=== PATIENT | female | born 1975 | race African-American/Black ===

== ENCOUNTER 2023-04-02 09:52 | Inpatient (IN) | payer BC ==
[2023-04-02] MEDS ORDERED: SODIUM CHLORIDE 1,000 ML IV SCH (10:00)
[2023-04-02] MEDS ORDERED: ACETAMINOPHEN 1000 MG/100 ML BAG IVPB ONE (10:21)
[2023-04-02] MEDS ORDERED: ONDANSETRON 4 MG/2 ML VIAL IVPUSH ONE (10:21)
[2023-04-02 11:07] LABS: BASO % 0.5 % (0-2.0); EOS % 0.6 % (0-4.5); HEMATOCRIT 38.3 % (32.4-45.2); HEMOGLOBIN 12.9 GM/dL (10.7-15.3); LYMPH % 34.1 % (8-40); MCH 29.5 pg (25.7-33.7); MCHC 33.6 g/dl (32.0-36.0); MEAN CELL VOLUME 87.9 fl (80-96); MEAN PLT VOLUME 9.2 fl (7.5-11.1); MONO % 2.7 % (3.8-10.2); NEUT % 62.1 % (42.8-82.8); PLATELET COUNT 203 10^3/uL (134-434); RBC 4.36 M/mm3 (3.60-5.2); RDW 15.8 % (11.6-15.6); WHITE BLOOD COUNT 3.2 K/mm3 (4.0-10.0)
[2023-04-02] MEDS ORDERED: LACTATED RINGERS SOLUTION 1000 ML INFUS.BAG IV ONE (11:10)
[2023-04-02 11:11] LABS: INR 1.31 (0.83-1.09); PROTHROMBIN TIME (PATIENT) 15.1 SEC (9.7-13.0)
[2023-04-02 11:16] LABS: VENOUS BASE EXCESS -9.5 mmol/L (-2-2); VENOUS O2 SATURATION 77.9 % (70-80); VENOUS PCO2 38.1 mmHg (38-52); VENOUS PH 7.262 (7.310-7.410)
[2023-04-02 11:19] LABS: POTASSIUM 4.4 mmol/L (3.5-5.1)
[2023-04-02 11:22] LABS: ALBUMIN 3.9 g/dl (3.4-5.0)
[2023-04-02 11:23] LABS: BLOOD UREA NITROGEN 13.9 mg/dL (7-18)
[2023-04-02 11:25] LABS: CREATININE 1.8 mg/dL (0.55-1.3)
[2023-04-02 11:26] LABS: TOT PROT 7.7 g/dl (6.4-8.2)
[2023-04-02 11:27] LABS: BILIRUBIN,TOTAL 0.8 mg/dL (0.2-1)
[2023-04-02 11:30] LABS: LIPASE 183 U/L (73-393)
[2023-04-02 11:51] LABS: LACTIC ACID 10.1 mmol/L (0.4-2.0)
[2023-04-02 12:13] LABS: MAGNESIUM 1.7 mg/dL (1.8-2.4)
[2023-04-02] MEDS ORDERED: NAPH,MB-DB/K PH,MBDB POWDER PACKET PO ONE (12:55)
[2023-04-02] MEDS ORDERED: POTASSIUM PHOSPHATE 30 MM in DEXTROSE 5%-WATER - 250 ML IVPB ONE (12:57)
[2023-04-02] MEDS ORDERED: LACTATED RINGERS SOLUTION 2,000 ML IV STA (12:57)
[2023-04-02] MEDS ORDERED: POTASSIUM PHOSPHATE 30 MM in DEXTROSE 5%-WATER - 500 ML IVPB ONE (13:30)
[2023-04-02 14:15] LABS: POTASSIUM 3.9 mmol/L (3.5-5.1)
[2023-04-02 14:16] LABS: CALCIUM 8.4 mg/dL (8.5-10.1)
[2023-04-02 14:17] LABS: BLOOD UREA NITROGEN 13.7 mg/dL (7-18)
[2023-04-02 14:20] LABS: CREATININE 1.2 mg/dL (0.55-1.3)
[2023-04-02 14:37] LABS: LACTIC ACID 2.6 mmol/L (0.4-2.0)
[2023-04-02] MEDS ORDERED: MAGNESIUM SULFATE IN WATER 2 GM/50 ML IVPB IVPB ONE ×2 (14:45→14:50)
[2023-04-02] MEDS ORDERED: DEXTROSE 5%-0.45% SALINE 1,000 ML IV SCH (14:45)
[2023-04-02 14:56] LABS: PH,URINE 5.5 (5.0-8.0); URINE APPEARANCE CLEAR; URINE BILIRUBIN NEGATIVE (NEGATIVE); URINE COLOR YELLOW; URINE GLUCOSE (UA) NEGATIVE (NEGATIVE); URINE KETONE NEGATIVE (NEGATIVE); URINE LEUK ESTERASE NEGATIVE (NEGATIVE); URINE NITRITE NEGATIVE (NEGATIVE); URINE PROTEIN TRACE (NEGATIVE); URINE UROBILINOGEN 0.2 mg/dL (0.2-1.0)
[2023-04-02 15:05] LABS: MAGNESIUM 1.5 mg/dL (1.8-2.4)
[2023-04-02 15:09] LABS: PHOSPHOROUS 1.6 mg/dL (2.5-4.9)
[2023-04-02 16:21] VITALS: BMI 26.6
[2023-04-02] MEDS: DEXTROSE 5%-0.45% SALINE 1,000 ML IV SCH (16:21)
[2023-04-02] MEDS: ACETAMINOPHEN 500 MG TABLET (FP) PO PRN ×2 (16:24→22:08)
[2023-04-02] MEDS: ONDANSETRON 4 MG/2 ML VIAL IVPUSH PRN (17:23)
[2023-04-03] MEDS: DEXTROSE 5%-0.45% SALINE 1,000 ML IV SCH (03:49)
[2023-04-03 06:13] VITALS: TEMP 98.4
[2023-04-03] MEDS: ONDANSETRON 4 MG/2 ML VIAL IVPUSH PRN (07:26)
[2023-04-03] MEDS: ACETAMINOPHEN 500 MG TABLET (FP) PO PRN (07:26)
[2023-04-03] MEDS ORDERED: ACETAMINOPHEN 325 MG TABLET (FP) PO PRN (07:36)
[2023-04-03 07:54] LABS: BASO % 0.3 % (0-2.0); EOS % 0.2 % (0-4.5); HEMATOCRIT 32.6 % (32.4-45.2); HEMOGLOBIN 10.7 GM/dL (10.7-15.3); LYMPH % 28.1 % (8-40); MCH 29.2 pg (25.7-33.7); MCHC 32.7 g/dl (32.0-36.0); MEAN CELL VOLUME 89.2 fl (80-96); MEAN PLT VOLUME 9.2 fl (7.5-11.1); MONO % 7.2 % (3.8-10.2); NEUT % 64.2 % (42.8-82.8); PLATELET COUNT 140 10^3/uL (134-434); RBC 3.66 M/mm3 (3.60-5.2); RDW 15.3 % (11.6-15.6); WHITE BLOOD COUNT 4.3 K/mm3 (4.0-10.0)
[2023-04-03] MEDS ORDERED: ACETAMINOPHEN/CAFFEINE/BUTALBITAL 1 TAB PO ONE (08:15)
[2023-04-03 08:19] LABS: POTASSIUM 3.6 mmol/L (3.5-5.1)
[2023-04-03 08:23] LABS: CALCIUM 7.7 mg/dL (8.5-10.1); MAGNESIUM 2.2 mg/dL (1.8-2.4)
[2023-04-03 08:26] LABS: PHOSPHOROUS 3.6 mg/dL (2.5-4.9)
[2023-04-03 08:27] LABS: CREATININE 0.9 mg/dL (0.55-1.3)
[2023-04-03 12:19] VITALS: BP 122/80; PULSE 66; RESP 18
== END 2023-04-03 17:39 | disposition home or self-care (01) | DRG 312 ==
LOC: JER 09:52 → JERBED 14:37 → JICU 16:00 → J2W 16:07
PROVIDERS: ADMIT Internal Medicine; ATTEND Internal Medicine
DX: R55 Syncope and collapse (principal); N17.9 Acute kidney failure, unspecified; E87.0 Hyperosmolality and hypernatremia; E87.20 Acidosis, unspecified; E86.0 Dehydration; E83.39 Other disorders of phosphorus metabolism; E83.42 Hypomagnesemia; T67.5XXA Heat exhaustion, unspecified, initial encounter; X30.XXXA Exposure to excessive natural heat, initial encounter; Y93.89 Activity, other specified; Y92.89 Other specified places as the place of occurrence of the external cause; Y99.8 Other external cause status
CPT/HCPCS: 36415; 70450-TC; 80048; 80053; 80061; 80307; 81003; 82550; 82803; 82962; 83036; 83605; 83690; 83735; 84100; 84443; 84484; 84703; 85025; 85610; 85730; 86850; 86900; 86901; 93005; 93010; 99285-25